=== PATIENT | female | born 1985 | race Caucasian/White ===

== ENCOUNTER → 2020-11-03 15:30 | Outpatient (CLI) | payer SELFPAY ==
[2020-11-03 17:29] LABS: HCG,Quantitative 9975 mIU/ml (0-5.42)
== END ==
PROVIDERS: Visit Provider Nurse Practitioner Obstetrics & Gynecology
DX: Z34.90 Encounter for supervision of normal pregnancy, unspecified, unspecified trimester (principal)
CPT/HCPCS: 36415; 84702

== ENCOUNTER → 2020-11-12 11:54 | Outpatient (CLI) | payer BC, SELFPAY ==
--- NOTE | 2020-11-12 12:00 | US_ITS ---
PROCEDURE: US OB <= 14 WEEKS FETUS CLINICAL INDICATION: for dates COMPARISON: No exams were available for comparison FINDINGS: An intrauterine gestational sac is present with a pole with a crown-rump length of 0.71cm correlating to gestational age of 6weeks 5days. heart tones are present with an FHR of 132bpm. Yolk sac is noted. The uterus is retroverted. There is a 5 cm left ovarian cyst and a smaller 1.4 cm left ovarian cyst. IMPRESSION: Live IUP at 6 weeks 5 days. Estimated due date by Ultrasound is 07/03/2021 Dictated by: Jimi De Luna MD 11/12/2020 18:11 Jimi De Luna MD in [place] 11/12/2020 18:11
[2020-11-12 16:04] LABS: Basophils # 0.1 K/mm3 (0-0.2); Basophils % 0.5 % (0.1-2.0); Eosinophils # 0.1 K/mm3 (0.0-0.4); Eosinophils % 0.7 % (0.1-12.0); Hematocrit 46.1 % (37.0-47.0); Hemoglobin 14.9 g/dL (12.2-16.2); Lymphocytes # 2.3 K/mm3 (0.7-4.5); Lymphocytes % 24.4 % (10-50); Mean Corpuscular HGB Conc 32.3 g/dL (31.8-35.4); Mean Corpuscular Hemoglobin 30.9 pg (27.0-31.2); Mean Corpuscular Volume 95.6 fl (81-99); Monocytes # 0.5 K/mm3 (0.1-1.0); Monocytes % 4.9 % (1.7-9.3); Neutrophils # 6.4 K/mm3 (1.8-7.8); Neutrophils % 69.5 % (37.0-80.0); Platelet Count 280 K/mm3 (142-424); Red Blood Count 4.82 M/mm3 (4.20-5.40); Red Cell Distribution Width 12.4 % (11.5-17.5); White Blood Count 9.2 K/mm3 (4.8-10.8)
[2020-11-14 08:23] LABS: HIV Screen 4th Generation wRfx Non Reactive (Non Reactive)
[2020-11-14 13:10] LABS: Hepatitis B Surface Antigen Negative (Negative); Hepatitis C Antibody <0.1 s/co ratio (0.0-0.9); Rapid Plasma Reagin Ab Titer Non Reactive (NonRea<1:1); Rubella Antibodies, IgG 1.46 index (Immune >0.99)
== END ==
PROVIDERS: Visit Provider Nurse Practitioner Obstetrics & Gynecology
DX: Z34.90 Encounter for supervision of normal pregnancy, unspecified, unspecified trimester (principal); Z3A.01 Less than 8 weeks gestation of pregnancy
CPT/HCPCS: 36415; 76801; 85025; 86592; 86703; 86762; 86850; 87340; 87380; G0432

== ENCOUNTER → 2021-01-02 09:49 | Outpatient (CLI) | payer BC, SELFPAY | PROVIDERS: Visit Provider Nurse Practitioner Obstetrics & Gynecology | DX: Z36.0 Encounter for antenatal screening for chromosomal anomalies (principal) | CPT/HCPCS: 36415 ==

== ENCOUNTER → 2021-01-15 10:35 | Outpatient (CLI) | payer BC, SELFPAY | PROVIDERS: PCP Nurse Practitioner Obstetrics & Gynecology; Visit Provider Internal Medicine Cardiovascular Disease | DX: R06.00 Dyspnea, unspecified (principal); R07.89 Other chest pain; R00.2 Palpitations; R01.1 Cardiac murmur, unspecified; R60.9 Edema, unspecified; R94.31 Abnormal electrocardiogram [ECG] [EKG]; F17.200 Nicotine dependence, unspecified, uncomplicated; Z3A.15 15 weeks gestation of pregnancy; Z82.49 Family history of ischemic heart disease and other diseases of the circulatory system | CPT/HCPCS: 93270 ==

== ENCOUNTER → 2021-01-27 13:02 | Outpatient (CLI) | payer BC, SELFPAY ==
--- NOTE | 2021-01-27 13:02 | CA_ITS ---
APPROVED REPORT EXAM: Comprehensive 2D, Doppler, and color-flow Echocardiogram Air Brush Decorator: TADEO Rader, RVS Ht: 5 ft 8 in Wt: 145lbs BSA: 1.78 HR: 68 bpm BP: 109/78 mmHg Indications: , Palpitations, abn EKG, murmur 2D Dimensions IVSd 0.87 cm LVEF (Visual) 53.00 % PWd 0.92 cm LA Volume 48.70 mL LVDd 4.63 cm LA Volume Index 27.40 mL/m2 (M/F) 16-34 LVDs 3.37 cm Aortic Root 2.54 cm Left Atrium 3.62 cm LVOT 1.66 cm (M/F) 1.5-2.5 M-Mode Dimensions LA Diam 3.48 cm (1.9-4.0) Ao Diam 2.64 cm (2.0-3.7) EPSs 0.44 cm TAPSE 2.48 (<1.7) LV Diastology E Decel Time 247.00 (160-240 msec) E/A Ratio 2.55 MED E' 11.80 (< 7 cm/sec) MED A' 6.80 cm/s E'/MED E' Ratio 12.42 (>14) LAT E' 15.60 (<10 cm/sec) LAT A' 8.40 cm/s E/LAT E' Ratio 9.40 (>14) Aortic Valve LVOT Max 149.00 (70-110 cm/s) LVOT VTI 30.28 cm Mitral Valve MV A Velocity 57.00 (40-130 cm/s) E/A Ratio 2.55 MV Decel. Time 247.00 (160-240 ms) Pulmonary Valve PV Peak Velocity 112.00 (50-150 cm/s) Tricuspid Valve TR P. Velocity 242.00 cm/s RAP Estimate 10.00 mmHg RVSP 33.40 mmHg Left Ventricle Left atrium is upper limit of normal size, left ventricle is normal size, there is no concentric left ventricular hypertrophy, visually estimated ejection fraction 55% with no regional wall motion abnormality, diastolic parameters are within normal range. Right Ventricle Right atrium and right ventricle are normal size and contractility. Aortic Valve Aortic valve is normal. There is no aortic stenosis or aortic insufficiency. Mitral Valve Mitral valve grossly normal, there is trace mitral regurgitation. Tricuspid Valve Tricuspid grossly normal, there is trace tricuspid regurgitation, tricuspid regurgitation jet velocity is inadequate for calculation of the right ventricular systolic pressure. Pulmonic Valve Pulmonic valve is poorly visualized. Great Vessels Aortic root is normal size. Pericardium No significant pericardial effusion noted. Conclusion 1. Normal left ventricular size, preserved left ventricular systolic function, visually estimated ejection fraction 55% with no regional wall motion abnormality, diastolic parameters are within normal range. 2. Trace mitral and tricuspid regurgitation of no hemodynamic significance. 3. No significant pericardial effusion noted. Electronically signed by : Chaim Garcia, 01/28/2021 15:21:49
--- NOTE | 2021-01-27 13:02 | CA_ITS ---
APPROVED REPORT Medicine Man: JOSELUIS Laterality: Bilateral Study Quality: Good Indications: bilateral carotid bruits, , palpitations, ABN EKG Doppler Spectral Velocity Analysis ECA (R) 150.20/14.40 cm/s ECA (L) 94.40/8.70 cm/s dICA (R) 74.80/25.40 cm/s dICA (L) 124.20/31.80 cm/s Yisel (R) 87.60/29.90 cm/s Yisel (L) 118.50/27.00 cm/s pICA (R) 143.50/32.70 cm/s pICA (L) 150.20/28.90 cm/s dCCA (R) 125.00/27.70 cm/s dCCA (L) 142.50/33.70 cm/s pCCA (R) 119.70/19.50 cm/s pCCA (L) 149.30/29.90 cm/s Vert (R) 65.80/12.00 cm/s Vert (L) 70.30/18.30 cm/s ICA/CCA 1.10 ICA/CCA 1.05 Findings Duplex evaluation demonstrates stenosis of the right proximal internal carotid artery <20% with PSV <140 cm/sec, EDV <100 cm/sec, and IC/CC Ratio <4.0.Duplex evaluation demonstrates stenosis of the left proximal internal carotid artery <20% with PSV <140 cm/sec, EDV <100 cm/sec, and IC/CC Ratio <4.0. Duplex evaluation demonstrates antegrade flow of the bilateral Vertebral Arteries. No focal stenosis nor plaque formations present, Tortuous right distal ICA. Conclusion Duplex evaluation demonstrates stenosis of the right proximal internal carotid artery <20%. Duplex evalluation demonstrates stenosis of the left proximal internal carotid artery <20% . Duplex evaluation demonstrates antegrade flow of the bilateral Vertebral Arteries. Electronically signed by : Jimi De Luna MD 01/27/2021 16:16:10
== END ==
LOC: RT 13:02
PROVIDERS: Visit Provider Internal Medicine Cardiovascular Disease
DX: R00.2 Palpitations (principal); R06.00 Dyspnea, unspecified; R07.89 Other chest pain; R01.1 Cardiac murmur, unspecified; R09.89 Other specified symptoms and signs involving the circulatory and respiratory systems; R94.31 Abnormal electrocardiogram [ECG] [EKG]; F17.200 Nicotine dependence, unspecified, uncomplicated; Z3A.15 15 weeks gestation of pregnancy; Z82.49 Family history of ischemic heart disease and other diseases of the circulatory system
CPT/HCPCS: 93306; 93880

== ENCOUNTER → 2021-02-17 13:12 | Outpatient (CLI) | payer BC, SELFPAY ==
--- NOTE | 2021-02-17 13:14 | US_ITS ---
PROCEDURE: US OB /MATERNAL DETAIL CLINICAL INDICATION: 20 week gestation Anatomy exam COMPARISON: US US OB <= 14 WEEKS FETUS from 11/12/2020 FINDINGS: Single live fetus is present in cephalic presentation. Cervix is closed measuring 3 cm. Placenta is anterior and grade 1 Complete survey performed and was unremarkable on the submitted images as in PACS. No discrete anomalies identified on survey imaging by technologist. Active fetus. Three-vessel cord with satisfactory umbilical cord insertion. 4- chamber heart noted. Nonspecific echogenic cardiac focus noted. Survey of brain & ventricles Unremarkable. Face and neck survey unremarkable. Diaphragm and chest views unremarkable. Abdomen: Both kidneys noted and unremarkable. Stomach noted and satisfactory. Spine: Survey of the spine satisfactory with no anomalies identified nor imaged. Both arms and legs noted. Amniotic Fluid: Adequate. Maternal adnexa: No significant findings. Measurements: Average ultrasound age 20weeks 4days. Gestational Age 20weeks 4days Estimated due date by ultrasound age 1007/03/2021. Estimated weight 358g BPD = 20weeks 5days OFD = 21weeks 3days HC = 20weeks 3days AC = 20weeks 5days FL = 20weeks 3days Growth Percentile= 41Percent% Heart Rate = 156bpm Cerebellum = 20weeks 5days Humerus = 22weeks HC/AC is 1.16 CI is 0.75 FL/BPD is 0.68 FL/AC is 0.21 IMPRESSION: Live IUP in cephalic presentation with an average ultrasound age of 20 weeks and 4 days. All parameters correlate. There is a nonspecific echogenic cardiac focus which is usually an incidental finding. Please correlate with maternal risk factors. Otherwise unremarkable. Dictated by: Jimi De Luna MD 02/18/2021 07:59 Jimi De Luna MD in [facility] 02/18/2021 07:59
== END ==
PROVIDERS: Visit Provider Nurse Practitioner Obstetrics & Gynecology
DX: Z34.90 Encounter for supervision of normal pregnancy, unspecified, unspecified trimester (principal); Z3A.20 20 weeks gestation of pregnancy
CPT/HCPCS: 76811

== ENCOUNTER → 2021-05-31 10:07 | Outpatient (CLI) | payer BC, SELFPAY ==
--- NOTE | 2021-05-31 10:10 | US_ITS ---
PROCEDURE: US OB FOLLOW UP CLINICAL INDICATION: Small for gestational age FINDINGS: There is a single live fetus present which is in cephalic presentation. heart and body motion noted. The placenta is anterior in implantation and grade 1. No obvious previa or abruption. The cervix is closed and measures 3 cm The following parameters are obtained: Average ultrasound age is Average 34weeks 6days Estimated due date by ultrasound is 07/06/2021. Estimated weight is 2,492g. This is 31 percentile BPD: 35weeks 1day OFD: 35 weeks 0 days HC: 34weeks 5days AC: 34weeks 4days FL: 35weeks heart rate: 146bpm bpm. HC/AC: 1.01 Cephalic index: 0.8 FL/BPD: 0.78 FL/AC: 0.22 Amniotic fluid index: 11.91cm The femur length is 35weeks SD ratio and resistive index of the umbilical artery are within normal limits at 2.3 and 0.57 respectively. Biophysical profile is 8 of 8 IMPRESSION: Single live fetus in cephalic presentation with an average ultrasound age of 34 weeks 6 days. Estimated weight 2492 g which is 31 percentile. RENAE normal at 12 cm SD ratio unremarkable. Biophysical profile 8 of 8 Dictated by: Jimi De Luna MD 06/07/2021 10:23 Jimi De Luna MD in [facility] 06/07/2021 10:23
== END ==
PROVIDERS: Visit Provider Nurse Practitioner Obstetrics & Gynecology
DX: O36.5990 Maternal care for other known or suspected poor fetal growth, unspecified trimester, not applicable or unspecified (principal)
CPT/HCPCS: 76811; 76819; 76820

== ENCOUNTER → 2021-06-01 17:09 | Outpatient (CLI) | payer BC, SELFPAY | PROVIDERS: Visit Provider Nurse Practitioner Obstetrics & Gynecology | DX: Z34.90 Encounter for supervision of normal pregnancy, unspecified, unspecified trimester (principal) | CPT/HCPCS: 86403 ==

== ENCOUNTER 2021-06-29 03:01 | Inpatient (IN) | payer BC, SELFPAY ==
[2021-06-29] VITALS (11 sets, daily range): BP systolic 93–136; BP diastolic 50–84; PULSE 63–84; RESP 12–18; TEMP 36.4–36.9; O2SAT 94–100; BMI 24.9
[2021-06-29 03:15] LABS: Coronavirus 19, PCR Not Detected (NotDetected); Influenza A, PCR Not Detected (NotDetected); Influenza B, PCR Not Detected (NotDetected)
[2021-06-29 03:18] LABS: Basophils # 0.1 K/mm3 (0-0.2); Basophils % 0.4 % (0.1-2.0); Eosinophils # 0.1 K/mm3 (0.0-0.4); Eosinophils % 1.2 % (0.1-12.0); Hematocrit 43.8 % (37.0-47.0); Hemoglobin 14.5 g/dL (12.2-16.2); Lymphocytes % 24.6 % (10-50); Mean Corpuscular HGB Conc 33.1 g/dL (31.8-35.4); Mean Corpuscular Hemoglobin 31.8 pg (27.0-31.2); Mean Corpuscular Volume 96.2 fl (81-99); Mean Platelet Volume 7.7 fl (7.4-10.4); Monocytes # 0.6 K/mm3 (0.1-1.0); Monocytes % 5.2 % (1.7-9.3); Neutrophils # 8.4 K/mm3 (1.8-7.8); Neutrophils % 68.6 % (37.0-80.0); Platelet Count 251 K/mm3 (142-424); Red Blood Count 4.55 M/mm3 (4.20-5.40); Red Cell Distribution Width 12.5 % (11.5-17.5); White Blood Count 12.3 K/mm3 (4.8-10.8)
--- NOTE | 2021-06-29 05:56 | HMH.DN ---
- Delivery Note Delivery Date:: 06/29/21 Delivery Time:: 05:43 Anesthesia Type: None Was labor medically induced?: No Induction method: none Gestational age (weeks): 39 delivered prior to 39 weeks?: No Justification for early elective delivery:: Active Labor Infant Gender: Female at 1 minute: 9 at 5 minutes: 9 Delivery Procedure:: She is a 35-year-old 4 para 3 at 39 weeks gestational age. She came in in active labor and was found be 7 cm dilated. She progressed to full dilation and delivered spontaneously a liveborn female child at 5:48 AM on the morning of June 29, 2021. On deliver the head the anterior shoulder then easily delivered followed by the rest infant's body atraumatically. We allowed the cord to continue to pulsate and then the cord was doubly clamped and cut. The was then placed on the mother's abdomen for further care. The placenta did not come out on its own so she has been taking to the operating room for a manual removal of her placenta. Placental Delivery Description: Spontaneous
--- NOTE | 2021-06-29 05:59 | HMH.OBAPHP ---
OB - H&P: HPI Antepartum - History of Present Illness Chief complaint: Contractions History of present illness: She is a 35-year-old 4 para 3 at 39+ weeks gestational age. She came in in active labor and on arrival was found to be 7 cm dilated. - History of Present Criteria for establishing EDC:: LMP confirmed by 1st trimester US care: good care Ultrasounds: normal 1st trimester US, normal mid trimester US Obstetrical complications: none Medical complications: none - Labs Blood type: O (+) positive Rubella: immune RPR/VDRL: nonreactive GBS status: negative HBsAG: negative [facility] History I have reviewed the patient's past medical history: Yes Medical History: Reports:: Heart Murmur, Palpitations *Have you ever received a pneumonia vaccine?: No *Have you received a flu vaccine this season?: No Laterality Cases: Bilateral: Tonsillectomy Other Surgeries: Yes: Diagnostic Lap. No: Amputation: No Fractures: No - *Social History Smoking Status: Current every day smoker Tobacco Type: cigarettes # Packs/Day (cigarettes): 1 Alcohol Intake: never Alcohol Intake Frequency:: other Substance Use Type: denies use *Occupational Status:: employed *Travel in the last 8 weeks: None Family Hx:: Other Para: 3 Review of Systems - Review of Systems Review of systems:: pertinent systems reviewed and negative unless documented below Meds Home Medications Medication Instructions Recorded Confirmed Type vits 75-iron 28 mg-folic 1 tablet PO DAILY each 02/12/21 06/29/21 History acid 800 mcg-omega-3 oral combo pack Ferrous Sulfate 325 mg PO DAILY 06/29/21 06/29/21 History Allergies Allergy/AdvReac Type Severity Reaction Status Date / Time promethazine [From PHENERGAN] Allergy Mild PASSES ME Verified 06/22/21 08:37 OUT FOR DAYS meperidine [From DEMEROL] Allergy Unknown Verified 06/22/21 08:37 latex Allergy Verified 06/29/21 03:46 acetaminophen [From Percocet] AdvReac Mild Headache Verified 06/22/21 08:37 oxycodone [From Percocet] AdvReac Mild Headache Verified 06/22/21 08:37 OB - H&P: Exam - Physical Exam Vital signs: Temp Pulse Resp BP Pulse Ox 98.5 F 74 18 136/72 99 06/29/21 03:14 06/29/21 03:14 06/29/21 03:14 06/29/21 03:14 06/29/21 03:14 - Constitutional no acute distress - Routine HEENT Exam Head: Present: normocephalic Eye: Present: EOMI, PERRL ENT: Present: mucous membranes moist - Routine Neck Exam Present: supple, full ROM - Routine Respiratory Exam Absent: accessory muscle use (good air entry bilaterally), respiratory distress, wheezes, crackles - Routine Cardiovascular Exam Present: RRR. Absent: murmur - Routine Abdominal Exam Present: soft, normoactive bowel sounds. Absent: tenderness, distended, guarding - Routine Rectal Exam Patient deferred: visual exam, digital exam - Routine Exam Patient deferred: external exam, groin exam, perineal exam - Routine Extremities Exam Present: full ROM. Absent: cyanosis, edema - Routine Skin Exam Present: intact. Absent: cyanosis - Routine Neurological Exam Present: alert, oriented X3 - Routine Psychiatric Exam Present: normal affect OB - Results - Labs Labs: Short CBC 06/29/21 Range/Units 02:55 WBC 12.3 H (4.8-10.8) K/mm3 Hgb 14.5 (12.2-16.2) g/dL Hct 43.8 (37.0-47.0) % Plt Count 251 (142-424) K/mm3 OB - A/P Antepartum (1) Normal delivery at term Status: Acute - Additional Plan Planning to breastfeed?: Yes Plan: expectant management Additional Information:: She is in active labor. Expect vaginal delivery.
--- NOTE | 2021-06-29 07:07 | P.OP_ITS ---
Date of procedure: 06/29/21 Pre-op Diagnosis:: Retained placenta Post-op Diagnosis:: Retained placenta Procedure performed:: Manual removal of retained placenta Surgeon:: Federico Mark MD HANDLE LATHE OPERATOR:: Jluis Ferrari Anesthesia: LMA Estimated blood loss (mL): 1,000 Clinical Note:: She is a 35-year-old 4 para 4 who was 30 minutes post vaginal delivery a nd I was not able to deliver the placenta. As result of that we have taken her to the operating room for manual removal. The risks of surgery discussed with patient prior to surgery. Operative findings:: She had a retained placenta in the right side of the fundus. I was able to remove this manually. The uterus was still somewhat boggy after the procedure and was bleeding so I elected to place a DEIDRE RI balloon within the uterine cavity. Operative note:: She was taken the operating room where LMA anesthesia was found be adequate. She was prepped regular sterile fashion in the lithotomy position. I grasped the placenta with my fingers and was able to remove it in its entirety. She was still oozing significantly so I elected to place a BA KR I balloon within the uterine cavity. We injected approximately 210 cc of saline. She tolerated procedure well and was taken to the recovery next condition. All sponge, instrument and needle counts were correct. The estimated blood loss was approximately 1000 cc. Condition: stable Disposition: PACU Specimens:: Placenta Complications:: None
--- NOTE | 2021-06-29 07:23 | HMH.ANESCL ---
[facility] Anesthesia Checklist - Structural Data Admitted From: Inpatient Planned Operative Procedure/s: d/e Consent for Planned Operative Procedure(s) Verified: Yes - Airway Assessment C-Spine Mobility Assessed: Yes TMJ Mobility Assessed: Yes Dentition: Good Dentition - Neurological Assessment Level of Consciousness: Awake, Alert, Appropriate - Anesthesia Plan Anesthesia Risk discussed: Yes Anesthesia Plan: Verified ASA Class: II Anesthesia Type: General [facility] History I have reviewed the patient's past medical history: Yes Medical History: Reports:: Heart Murmur, Palpitations *Have you ever received a pneumonia vaccine?: No *Have you received a flu vaccine this season?: No Anesthesia experience/problems:: none Laterality Cases: Bilateral: Tonsillectomy Other Surgeries: Yes: Diagnostic Lap. No: Amputation: No Fractures: No - *Social History Smoking Status: Current every day smoker Tobacco Type: cigarettes # Packs/Day (cigarettes): 1 Alcohol Intake: never Alcohol Intake Frequency:: other Substance Use Type: denies use *Occupational Status:: employed *Travel in the last 8 weeks: None Family Hx:: Other Para: 3
--- NOTE | 2021-06-29 07:24 | HMH.ANESI ---
[facility] Anesthesia Record Part I Intake, IV Amount: 500 Estimated blood loss (mL): 1,000 Urine output (mL): 250 Blood Pressure: 95/62 SaO2: 95 Pulse Rate: 71 Respiratory Rate: 12 Temperature: 98 F Patient is:: Awake, Stable Stable to PACU at:: 07:15
--- NOTE | 2021-06-29 07:32 | HMH.PHAINT ---
MEDICATION RECONCILIATION COMPLETE USING PREVIOUS OFFICE VISIT AND SURESCRIPTS
--- NOTE | 2021-06-29 08:27 | P.PN_ITS ---
[facility] Anesthesia Record Part II Discharge Time: 07:55 Destination: Obstetric PACU nurse assessment reviewed?: Yes Patient Condition:: Good Anesthesia Complications:: None Swallowing reflex intact?: Yes Cyanosis?: No Blood Pressure: 103/67 Pulse Rate: 63 Temperature: 97.7 F Mental Status: Alert & Oriented Pain level:: 6 Nausea and/or vomitting:: None Intake, IV Amount: 0
[2021-06-29 16:02] LABS: Hematocrit 33.4 % (37.0-47.0)
[2021-06-29 17:42] LABS: Hemoglobin 10.8 g/dL (12.2-16.2)
[2021-06-29 20:49] LABS: POC Glucose,Bedside 70 (70-110)
[2021-06-30 00:08] VITALS: BP 94/50; PULSE 67; RESP 17; TEMP 36.7; O2SAT 97
[2021-06-30 00:22] LABS: POC Glucose,Bedside 71 (70-110)
[2021-06-30 02:54] LABS: POC Glucose,Bedside 75 (70-110)
[2021-06-30 04:23] VITALS: BP 94/50; PULSE 65; RESP 18; TEMP 36.9; O2SAT 97
[2021-06-30 07:23] LABS: Hematocrit 29.7 % (37.0-47.0); Hemoglobin 9.5 g/dL (12.2-16.2)
[2021-06-30 08:40] VITALS: BP 98/52; PULSE 86; RESP 17; TEMP 36.8; O2SAT 98
--- NOTE | 2021-06-30 09:42 | HMH.OBDCSM ---
General - General Admission date:: 06/29/21 Discharge date: 06/30/21 HPI - History of Present Illness History of present illness: She arrived in active labor and was found to be 7 cm dilated. She was 39 weeks gestational age. Hospital Course Hospital Course: She progressed to full dilation and delivered spontaneously a liveborn female child at 5:43 AM on the morning of June 29, 2021. The baby weighed 6 pounds 2 ounces and was 19 inches long. She had Apgars of 9 at 1 minute and 9 at 5 minutes. She is breast-feeding. She had a retained placenta and I had to take her to the operating room for manual removal of the placenta. She subsequently had a DEIDRE RI balloon within the uterine cavity and this was removed on the morning of discharge. She has done well. Her hemoglobin is stable at 10.8. She has O+ blood, she is rubella immune and was group B streptococcus negative. Her repairer screen crusher Dr. Covington. She is discharged home to follow-up with me in approximately 2 weeks time. She will continue with her vitamins and iron. She was given the usual instructions with respect to limiting her activity, driving and sexual activity. She will discuss with me about control at her first visit. Her condition on discharge is stable and improved. Rhogam Administration: Not Indicated Objective Vital signs: Temp Pulse Resp BP Pulse Ox 98.3 F 86 17 98/52 L 98 06/30/21 08:40 06/30/21 08:40 06/30/21 08:40 06/30/21 08:40 06/30/21 08:40 no acute distress - *Routine HEENT Exam Head: Present: normocephalic Eye: Present: EOMI, PERRL ENT: Present: mucous membranes moist Results Labs on day of discharge: Labs from last 24 hours 06/30/21 06/30/21 06/30/21 06:40 02:45 00:14 Hgb 9.5 L D Hct 29.7 L POC Glucose 75 71 Blood Type Blood Type Confirm Antibody Screen Crossmatch (AHG) 06/29/21 06/29/21 06/29/21 20:41 15:57 11:04 Hgb 10.8 L D Hct 33.4 L POC Glucose 70 Blood Type Blood Type Confirm O Positive Antibody Screen Crossmatch (AHG) 06/29/21 02:55 Hgb Hct POC Glucose Blood Type O Positive Blood Type Confirm Antibody Screen Negative Crossmatch (AHG) See Detail DS: Diagnosis - Discharge Diagnosis (1) Normal delivery at term Status: Acute (2) Retained placenta after delivery without hemorrhage but with other complication Status: Acute Discharge Plan - Patient Discharge Instructions ACTIVITY: No heavy lifting DIET: continue same diet Additional Instructions: No heavy lifting/strenuous activity Nothing in the vagina for 6 weeks Follow up with MD as scheduled Patient Instructions: Depression, Hemorrhage, DI for Labor and Delivery, Vaginal , DI for Pre-eclampsia, [facility] Post Discharge Instructions, Preventing the Spread of Coronavirus Discharge Instructions - Follow up Plan Follow up with: Federico Mark MD [Staff Physician] - Disposition: Home, Self-Care Condition at discharge:: Stable Home Medications: Home Medications Medication Instructions Recorded Confirmed Type vits 75-iron 28 mg-folic 1 tablet PO DAILY each 02/12/21 06/29/21 History acid 800 mcg-omega-3 oral combo pack Ferrous Sulfate 325 mg PO DAILY 06/29/21 06/29/21 History Prescriptions/Medication Reconciliation: Continued vits 75-iron 28 mg-folic acid 800 mcg-omega-3 oral combo pack 1 tablet PO DAILY each Ferrous Sulfate 325 mg PO DAILY - Problem Reconciliation Problems Reviewed?: Yes
== END 2021-06-30 15:13 | disposition home or self-care (01) | DRG 807 ==
LOC: OBOUT 03:02 → OB 03:02
PROVIDERS: Admitting Provider Nurse Practitioner Obstetrics & Gynecology; Visit Provider Nurse Practitioner Obstetrics & Gynecology
DX: O73.0 Retained placenta without hemorrhage (principal); Z37.0 Single live birth; Z3A.39 39 weeks gestation of pregnancy
CPT/HCPCS: 59409; 59414; 36415; 59025; 82962; 85014; 85018; 85025; 86850; C9803; J2405; U0003; U0005

== ENCOUNTER → 2022-04-11 08:52 | Outpatient (CLI) | payer BC, SELFPAY ==
[2022-04-11 11:32] LABS: HCG,Quantitative 21872 mIU/ml (0-5.42)
== END ==
PROVIDERS: Visit Provider Nurse Practitioner Obstetrics & Gynecology
DX: N92.6 Irregular menstruation, unspecified (principal)
CPT/HCPCS: 36415; 84702

== ENCOUNTER → 2022-05-11 12:39 | Outpatient (CLI) | payer BC, SELFPAY ==
--- NOTE | 2022-05-11 12:39 | US_ITS ---
FINAL REPORT CLINICAL HISTORY: for dates FINDINGS: Sonographic images of the pelvis were obtained. A single intrauterine is noted. A yolk sac is present and measures 0.54 cm. [place] to rump length measures 20.4 mm which corresponds to 8 weeks 5 days gestation. Heartbeat is not identified. The right ovary measures 3 cm in length with a 1.7 cm cyst. The left ovary measures 3.4 cm in length with a 1.6 cm cyst. IMPRESSION: Single intrauterine gestation no heartbeat identified consistent with a failed . Reviewed, Interpreted and Dictated by Rubin Decker III, MD Transcribed by Kylah Mendoza Authenticated and [facility]
== END ==
PROVIDERS: Visit Provider Nurse Practitioner Obstetrics & Gynecology
DX: Z34.90 Encounter for supervision of normal pregnancy, unspecified, unspecified trimester (principal)
CPT/HCPCS: 76801

== ENCOUNTER → 2022-05-11 14:32 | Outpatient (CLI) | payer BC, SELFPAY ==
[2022-05-11 17:42] LABS: Alanine Aminotransferase 29 U/L (12-78); Albumin Level 3.7 g/dl (3.5-5.0); Albumin/Globulin Ratio 1.4 (1.1-1.8); Alkaline Phosphatase 45 U/L (38-126); Anion Gap 9.1 mEq/L (5-15); Aspartate Amino Transferase 30 U/L (14-36); Blood Urea Nitrogen 9 mg/dl (7-17); Calcium 9.1 mg/dl (8.4-10.2); Carbon Dioxide 26 mmol/L (22.0-30.0); Chloride 105 mmol/L (98-107); Estimated Glomerular Filt Rate 139 ml/min (>60); GFR (African American) 168 ML/MIN (>60); Globulin 2.7 g/dL (1.3-3.2); Glucose 92 mg/dl (74-100); Potassium 4.1 mmoL/L (3.5-5.1); Sodium 136 mmol/L (136-145); Total Protein,Serum 6.4 g/dl (6.3-8.2)
[2022-05-11 17:47] LABS: Basophils % 0.3 % (0.1-2.0); Eosinophils # 0.1 K/mm3 (0.0-0.4); Eosinophils % 0.9 % (0.1-12.0); Hematocrit 40.2 % (37.0-47.0); Hemoglobin 12.6 g/dL (12.2-16.2); Lymphocytes # 2.2 K/mm3 (0.7-4.5); Lymphocytes % 25.2 % (10-50); Mean Corpuscular HGB Conc 31.3 g/dL (31.8-35.4); Mean Corpuscular Hemoglobin 30.4 pg (27.0-31.2); Mean Corpuscular Volume 97.2 fl (81-99); Mean Platelet Volume 9.6 fl (7.4-10.4); Monocytes # 0.4 K/mm3 (0.1-1.0); Monocytes % 4.6 % (1.7-9.3); Neutrophils # 5.9 K/mm3 (1.8-7.8); Neutrophils % 68.9 % (37.0-80.0); Platelet Count 305 K/mm3 (142-424); Red Blood Count 4.14 M/mm3 (4.20-5.40); Red Cell Distribution Width 12.9 % (11.5-17.5); White Blood Count 8.6 K/mm3 (4.8-10.8)
[2022-05-11 18:15] LABS: Bilirubin,Total < 0.1 mg/dl (0.2-1.3)
== END ==
PROVIDERS: Visit Provider Nurse Practitioner Obstetrics & Gynecology
DX: Z01.812 Encounter for preprocedural laboratory examination (principal); Z20.822 Contact with and (suspected) exposure to COVID-19; O02.1 Missed abortion; Z34.90 Encounter for supervision of normal pregnancy, unspecified, unspecified trimester; N92.0 Excessive and frequent menstruation with regular cycle
CPT/HCPCS: 36415; 80053; 85025; C9803; U0003; U0005

== ENCOUNTER 2022-05-12 09:16 | Day surgery (SDC) | payer BC, SELFPAY ==
[2022-05-12] VITALS (9 sets, daily range): BP systolic 94–114; BP diastolic 51–64; PULSE 54–74; RESP 16–21; TEMP 36.3–36.9; O2SAT 93–100
--- NOTE | 2022-05-12 10:45 | P.OP_ITS ---
Date of procedure: 05/12/22 Pre-op Diagnosis:: Missed Post-op Diagnosis:: Missed and right Bartholin gland cyst Procedure performed:: Dilation and curettage with [place] suction Surgeon:: Federico Mark MD COMMUNITY SUPPORT PROFESSIONAL:: Efra Renyolds Anesthesia: LMA Estimated blood loss (mL): 300 Clinical Note:: She is a 36-year-old lady who was about 9 weeks gestational age. She had an ultrasound in radiology that showed no heart rate activity. I repeated the ultrasound here in the office and confirmed that with the patient. There was no heart rate and no Doppler flow. As result of that she was offered dilation and evacuation with Bjorn suction. Operative findings:: She had an anteverted somewhat bulky uterus consistent with her dates. She also had a 3 cm right Bartholin's gland cyst. Operative note:: She was taken the operating room where LMA anesthesia was found to be adequate. She was prepped and draped in the normal sterile fashion in the lithotomy position. A weighted speculum was placed in the vagina and the anterior lip of the cervix was grasped with a tenaculum. Tamayo dilators were used to dilate the cervix to approximately 9 mm. Then using a 9 mm curved [place] suction curette I evacuated the uterine contents. This was followed by a gentle curettage. She tolerated procedure well and was taken recovery room in excellent condition. All sponge, instrument and needle counts were correct. The estimated blood loss was approximately 300 cc. Condition: stable Disposition: PACU Specimens:: Products of conception Complications:: None
--- NOTE | 2022-05-12 10:49 | EXP.ANES.CKL ---
[facility] Medical History (Updated 05/12/22 @ 09:46 by Corinne Aleman RN) Abnormal EKG Chest pain Chest pain Dyspnea Dyspnea Family history of heart disease Heart disease Heart murmur Palpitations Retained placenta Tobacco dependence syndrome Tonsillectomy planned Surgical History H/O exploratory laparotomy H/O removal of cyst Family History Other Heart attack Substance abuse Social History Smoking Status: Never smoker alcohol intake: current substance use type: denies use current occupational status: employed Travel in the last 8 weeks: None [facility] Anesthesia Checklist Patient Identification Patient Identification: Arm Band Structural Data Admitted From: Home Planned Operative Procedure/s: D&C with Rocío Suction Consent for Planned Operative Procedure(s) Verified: Yes Verified Documents: Surgical Consent and History and Physical NPO Status Verified Time NPO: 00:00 Additional verifications Anesthesia Reactions: Yes (N/V) Hx Blood Transfusions: No Blood Transfusion Reaction: No Airway Assessment C-Spine Mobility Assessed: Yes (mp2) TMJ Mobility Assessed: Yes Dentition: Good Dentition Neurological Assessment Level of Consciousness: Awake and Alert Anesthesia Plan Anesthesia Risk discussed: Yes Anesthesia Plan: Verified ASA Class: I Anesthesia Type: General
--- NOTE | 2022-05-12 10:50 | EXP.ANES.I ---
[facility] Anesthesia Record Part I Anesthesia Record I Intake, IV Amount: 800 Estimated blood loss (mL): 300 Urine output (mL): 0 Blood Pressure: 101/51 SaO2: 93 Pulse Rate: 59 Respiratory Rate: 16 Temperature: 97.4 F Patient is:: Drowsy and Stable Stable to PACU at:: 10:45
--- NOTE | 2022-05-12 11:28 | SUR.PHASEI ---
LATE ENTRY [id number] called and gave detailed report to Kavitha Bates RN [id number] transported via stretcher to post op. vital signs stable. denies pain. and child at bedside. left in stable condition with Kavitha Bates RN at bedside.
== END 2022-05-12 10:48 | disposition home or self-care (01) ==
PROVIDERS: PCP Nurse Practitioner Obstetrics & Gynecology; Visit Provider Nurse Practitioner Obstetrics & Gynecology
PROC: (CPT 59820; principal; 2022-05-12 10:30)
DX: O02.1 Missed abortion (principal); Z3A.09 9 weeks gestation of pregnancy
CPT/HCPCS: 59820; 96374; J2405

== ENCOUNTER → 2022-12-09 16:08 | Outpatient (CLI) | payer BC, SELFPAY ==
[2022-12-11 07:53] LABS: Progesterone 25.6 ng/mL (.)
== END ==
LOC: LAB 16:09
PROVIDERS: Visit Provider Nurse Practitioner Obstetrics & Gynecology
DX: N92.6 Irregular menstruation, unspecified (principal); Z32.00 Encounter for pregnancy test, result unknown
CPT/HCPCS: 36415; 84144; 84702

== ENCOUNTER → 2022-12-13 12:32 | Outpatient (CLI) | payer BC, SELFPAY ==
--- NOTE | 2022-12-13 12:33 | US_ITS ---
FINAL REPORT CLINICAL HISTORY: for dates FINDINGS: Sonographic images of the pelvis were obtained. A single, living intrauterine is noted. A yolk sac is present and measures 0.6 cm. [place] to rump length measures 3.5 cm which corresponds to 10 weeks 3 days gestation. Heartbeat is identified and measures 167 beats per minute. There are small ovarian cysts which are likely physiologic. The ovaries are otherwise unremarkable. IMPRESSION: Single, living, intrauterine gestation with 10 weeks 3 days gestational age. Reviewed, Interpreted and Dictated by Axel Yañez MD Transcribed by Osvaldo Fraser Authenticated and [facility]
== END ==
LOC: RAD 12:33
PROVIDERS: PCP Nurse Practitioner Obstetrics & Gynecology; Visit Provider Nurse Practitioner Obstetrics & Gynecology
DX: Z34.90 Encounter for supervision of normal pregnancy, unspecified, unspecified trimester (principal)
CPT/HCPCS: 76801

== ENCOUNTER → 2022-12-13 17:18 | Outpatient (CLI) | payer BC, SELFPAY | LOC: LAB.DROPOF 17:18 | PROVIDERS: Visit Provider Nurse Practitioner Obstetrics & Gynecology | DX: Z34.90 Encounter for supervision of normal pregnancy, unspecified, unspecified trimester (principal) | CPT/HCPCS: 87086; 87088; 87186 ==

== ENCOUNTER → 2023-01-10 09:52 | Outpatient (CLI) | payer BC, SELFPAY ==
[2023-01-10 10:47] LABS: Basophils % 0.4 % (0.1-2.0); Eosinophils # 0.1 K/mm3 (0.0-0.4); Eosinophils % 1.2 % (0.1-12.0); Hematocrit 39.7 % (37.0-47.0); Hemoglobin 12.7 g/dL (12.2-16.2); Lymphocytes # 1.9 K/mm3 (0.7-4.5); Lymphocytes % 25.5 % (10-50); Mean Corpuscular HGB Conc 31.9 g/dL (31.8-35.4); Mean Corpuscular Hemoglobin 29.3 pg (27.0-31.2); Mean Corpuscular Volume 91.7 fl (81-99); Mean Platelet Volume 7.4 fl (7.4-10.4); Monocytes # 0.3 K/mm3 (0.1-1.0); Monocytes % 4.3 % (1.7-9.3); Neutrophils # 5.1 K/mm3 (1.8-7.8); Neutrophils % 68.6 % (37.0-80.0); Platelet Count 280 K/mm3 (142-424); Red Blood Count 4.32 M/mm3 (4.20-5.40); Red Cell Distribution Width 12.8 % (11.5-17.5); White Blood Count 7.4 K/mm3 (4.8-10.8)
[2023-01-11 10:05] LABS: Rubella Antibodies, IgG 1.17 index (Immune >0.99)
[2023-01-11 13:51] LABS: Rapid Plasma Reagin Ab Titer Non Reactive (NonRea<1:1)
[2023-01-20 20:52] LABS: HIV Screen 4th Generation wRfx Non Reactive; Hepatitis B Surface Antigen Negative
[2023-01-20 20:53] LABS: Hepatitis C Antibody Non Reactive
== END ==
PROVIDERS: PCP Nurse Practitioner Obstetrics & Gynecology; Visit Provider Nurse Practitioner Obstetrics & Gynecology
DX: Z34.90 Encounter for supervision of normal pregnancy, unspecified, unspecified trimester (principal)
CPT/HCPCS: 36415; 85025; 86593; 86703; 86762; 86850; 87340; 87380; G0432

== ENCOUNTER → 2023-02-23 14:09 | Outpatient (CLI) | payer BC, SELFPAY ==
--- NOTE | 2023-02-23 14:17 | US_ITS ---
PROCEDURE: US OB /MATERNAL DETAIL CLINICAL INDICATION: 20 week anatomy scan COMPARISON: US US OB <= 14 WEEKS FETUS from 12/13/2022 FINDINGS: Single viable intrauterine gestation. Breech position. Placenta: Posteriorplacenta grade 1. There is average amount fluid. The cervix appears satisfactory. Closed and measuring 4.2 cm in length. Complete survey performed, submitted images as in PACS. There were 2 anomalies identified on survey imaging by technologist. Active fetus. Three-vessel cord with satisfactory umbilical cord insertion. 4- chamber heart noted. There was a cardiac echogenic foci within the heart. There is trace pericardial fluid. Survey of brain & ventricles Unremarkable. Cerebellum, choroid plexus, thalamus, cisterna magna appear normal Face and neck survey unremarkable. Upper lip and nose appear normal. Profile appears normal. Nasion is seen. Diaphragm and chest views unremarkable. Abdomen: Both kidneys noted and unremarkable. Stomach noted and satisfactory. Bladder visualized. Spine: Survey of the spine satisfactory with no anomalies identified nor imaged. Upper, thoracic, lower spine appear normal. Both arms and legs noted. Amniotic Fluid: Adequate. Measurements: Average ultrasound age 20weeks 6days. Gestational Age 20weeks 6days Estimated due date by ultrasound age 1007/07/2023. Estimated weight 368g BPD = 21weeks 2days OFD = 21weeks HC = 20weeks 3days AC = 21weeks FL = 20weeks 3days Growth Percentile= 34Percent Heart Rate = 152bpm Cerebellum = 20weeks 2days Humerus = 20weeks 5days HC/AC is 1.14 CI is 0.8 FL/BPD is 0.66 FL/AC is 0.21 IMPRESSION: 1. Fetus in the breech presentation with a posterior placenta grade 1. 2. There is an intracardiac echogenic foci. 3. There is a trace amount pericardial fluid. 4. The rest of the anatomical scan appears normal. 5. There has being good interval growth and the size and dates are concordant with her early ultrasound. 6. Suggest a maternal medicine consult for the cardiac anomalies seen. Dictated by: Federico Mark MD 02/26/2023 19:39 Federico Mark MD in [place] 02/26/2023 19:39
== END ==
LOC: RAD 14:10
PROVIDERS: Visit Provider Nurse Practitioner Obstetrics & Gynecology
DX: Z34.92 Encounter for supervision of normal pregnancy, unspecified, second trimester (principal); Z3A.20 20 weeks gestation of pregnancy
CPT/HCPCS: 76811

== ENCOUNTER → 2023-06-13 10:43 | Outpatient (CLI) | payer BC, SELFPAY ==
--- NOTE | 2023-06-13 10:45 | US_ITS ---
PROCEDURE: US OB BIOPHYSICAL PROFILE CLINICAL INDICATION: sga COMPARISON: Anatomy scan February 23, 2023. FINDINGS: Transabdominal sonographic images of the uterus were obtained. From her established due date she is 36weeks 3days. The following parameters are obtained: Viable fetus in the cephalic presentation with a fundal placenta grade 2 Average ultrasound age is 34weeks 5days. Estimated due date by ultrasound is 07/20/2023. Estimated weight is 5lb 8oz. Cervix measures 3.8 cm heart rate: 155bpm bpm. BPD: 34weeks 6days OFD: 34weeks 6days HC: 34 weeks 3 days AC: 34 weeks 6 days FL: 34 weeks 5 days HC/AC: 1.0 Cephalic index: 0.79 FL/BPD: 0.78 FL/AC: 0.22 13 percentile Amniotic fluid index: 8.22cm Qualitative AFV: 2 breathing movements: 0 Gross body movements: 2 Tone: 2 Biophysical profile score: 6 Doppler evaluation of the umbilical artery: SD ratio: 2.73 Resistive index: 0.63 No obvious anomalies evident.Kidneys, diaphragm, bladder, stomach, three-vessel cord appear normal. IMPRESSION: 1. Viable fetus in the cephalic presentation with a fundal placenta grade 2. 2. The fluid is within normal limits with an amniotic fluid index of 8.22 cm. 3. Biophysical profile is 6/8 with no breathing movement seen. There was good movement. 4. SD ratio is normal at 2.7. 5. There has been good growth. The fetus is currently 13th percentile. 6. Physician was notified of the lack of breathing movement. Dictated by: Federico Mark MD 06/14/2023 09:00 Federico Mark MD in OV 06/14/2023 09:00
== END ==
LOC: RAD 10:43
PROVIDERS: Visit Provider Nurse Practitioner Obstetrics & Gynecology
DX: O36.5990 Maternal care for other known or suspected poor fetal growth, unspecified trimester, not applicable or unspecified (principal); Z3A.36 36 weeks gestation of pregnancy
CPT/HCPCS: 76816; 76819; 76820

== ENCOUNTER → 2023-06-19 12:34 | Outpatient (CLI) | payer BC, SELFPAY | LOC: LAB 06-20 12:35 | PROVIDERS: PCP Nurse Practitioner Obstetrics & Gynecology; Visit Provider Nurse Practitioner Obstetrics & Gynecology | DX: Z34.93 Encounter for supervision of normal pregnancy, unspecified, third trimester (principal); Z3A.37 37 weeks gestation of pregnancy | CPT/HCPCS: 86403 ==

== ENCOUNTER 2023-07-12 20:29 | Inpatient (IN) | payer BC, SELFPAY ==
[2023-07-12 19:17] VITALS: BP 124/90; PULSE 84; RESP 17; TEMP 36.8; O2SAT 99; BMI 27.0
[2023-07-12 20:11] LABS: Microscopic, Urine URINE MICROSCOPIC (MICROSCOPIC)
[2023-07-12 20:20] LABS: Appearance,Urine CLEAR (Clear); Bilirubin,Urine Negative (Negative); Blood, Urine 2+ (Negative); Color,Urine YELLOW (Yellow); Glucose,Urine (UA) Negative (Negative); Ketones,Urine Negative (Negative); Leukocyte Esterase,Urine 2+ (Negative); Nitrate,Urine Negative (Negative); Protein,Urine Negative (Negative); Urobilinogen,Urine 0.2 EU/dl (0.2)
[2023-07-12 20:33] LABS: Amphetamine/Metha Screen,Urine Negative ng/ml (<1000); Barbiturates Screen,Urine Negative ng/ml (<200)
[2023-07-12 20:34] LABS: Benzodiazepines Screen,Urine Negative ng/ml (<200)
[2023-07-12 20:35] LABS: Cannabinoid Screen,Urine Negative ng/ml (<50); Cocaine Screen,Urine Negative ng/ml (<300)
[2023-07-12 20:36] LABS: Methadone Screen,Urine Negative ng/ml (<300)
[2023-07-12 20:38] LABS: Opiate Screen,Urine Negative ng/ml (<300)
[2023-07-12 20:39] LABS: Phencyclidine Screen,Urine Negative ng/ml (<25)
[2023-07-12 20:46] LABS: Bacteria,Urine 1+ /lpf; RBC,Urine Occasional #/hpf (0-3)
[2023-07-12 21:09] LABS: Basophils % 0.3 % (0.1-2.0); Eosinophils # 0.1 K/mm3 (0.0-0.4); Eosinophils % 0.7 % (0.1-12.0); Lymphocytes # 1.8 K/mm3 (0.7-4.5); Lymphocytes % 18.1 % (10-50); Mean Corpuscular HGB Conc 34.3 g/dL (31.8-35.4); Mean Corpuscular Hemoglobin 30.8 pg (27.0-31.2); Mean Corpuscular Volume 89.6 fl (81-99); Monocytes # 0.3 K/mm3 (0.1-1.0); Monocytes % 3.3 % (1.7-9.3); Neutrophils # 7.9 K/mm3 (1.8-7.8); Neutrophils % 77.6 % (37.0-80.0); Platelet Count 240 K/mm3 (142-424); Red Blood Count 4.24 M/mm3 (4.20-5.40); Red Cell Distribution Width 13.1 % (11.5-17.5); White Blood Count 10.2 K/mm3 (4.8-10.8)
--- NOTE | 2023-07-12 22:16 | EXP.ANES.CKL ---
[facility] Disclaimer: The information contained in this section may have been updated after the patient was seen, as this information can be updated by other users. Medical History Abnormal EKG Dyspnea Heart disease Heart murmur Palpitations Retained placenta Tobacco dependence syndrome Surgical History H/O exploratory laparotomy H/O removal of cyst History of D&C Family History Other Heart attack Substance abuse Social History Smoking Status: Never smoker alcohol intake: current substance use type: denies use current occupational status: employed Travel in the last 8 weeks: None [facility] Anesthesia Checklist Patient Identification Patient Identification: Arm Band Structural Data Admitted From: Inpatient Planned Operative Procedure/s: Labor Epidural Consent for Planned Operative Procedure(s) Verified: Yes Verified Documents: Surgical Consent and History and Physical NPO Status Verified Time NPO: 18:00 Additional verifications Anesthesia Reactions: Yes (N/V) Hx Blood Transfusions: No Blood Transfusion Reaction: No Airway Assessment Mallampati Score:: Class II C-Spine Mobility Assessed: Yes TMJ Mobility Assessed: Yes Dentition: Good Dentition Neurological Assessment Level of Consciousness: Awake and Alert Anesthesia Plan Anesthesia Risk discussed: Yes Anesthesia Plan: Verified ASA Class: II Anesthesia Type: Epidural
--- NOTE | 2023-07-13 01:02 | EXP.HP ---
History of Present Illness *Admission Date: 07/12/23 *Reason for visit:: Active labor, postdates, AMA *History of present illness: 40 weeks and 5 days. She is a 8 para 5 aborta 2 who was due to be induced. She arrived the evening prior to her induction in active labor. She was found to be 3 cm dilated and having irregular contractions. As of results that she was admitted in early labor. She has had 5 previous vaginal deliveries. [facility] Disclaimer: The information contained in this section may have been updated after the patient was seen, as this information can be updated by other users. Medical History Abnormal EKG Dyspnea Heart disease Heart murmur Palpitations Retained placenta Tobacco dependence syndrome Surgical History H/O exploratory laparotomy H/O removal of cyst History of D&C Family History Substance abuse Heart attack Social History Smoking Status: Never smoker alcohol intake: current substance use type: denies use current occupational status: employed Travel in the last 8 weeks: None Review of Systems Review of Systems Review of systems:: pertinent systems reviewed and negative unless documented below Meds Home Medications and Allergies Home Medications Medication Instructions Recorded Confirmed Type vits 75-iron 28 mg-folic pkg PO 01/10/23 07/11/23 History acid 800 mcg-omega-3 oral combo pack (One A Day Women's DHA) New Prescriptions to Start Prescriptions: Allergies Allergy/AdvReac Type Severity Reaction Status Date / Time promethazine [From PHENERGAN] Allergy Mild PASSES ME Verified 07/11/23 09:53 OUT FOR DAYS meperidine [From DEMEROL] Allergy Unknown Verified 07/11/23 09:53 latex Allergy Verified 07/11/23 09:53 acetaminophen [From Percocet] AdvReac Mild Headache Verified 07/11/23 09:53 oxycodone [From Percocet] AdvReac Mild Headache Verified 07/11/23 09:53 Exam Data for Last 24 hours Vital signs and Labs for Last 24 Hours: Temp Pulse Resp BP Pulse Ox O2 Del Method 98.3 F 84 17 124/90 99 Room Air 07/12/23 19:17 07/12/23 19:17 07/12/23 19:17 07/12/23 19:17 07/12/23 19:17 07/12/23 19:17 Laboratory Results - last 24 hr 07/12/23 19:33: Urine Color Yellow, Urine Appearance Clear, Urine pH 6.0, Ur Specific [place] 1.010, Urine Protein Negative, Urine Glucose (UA) Negative, Urine Ketones Negative, Urine Blood 2+, Urine Nitrate Negative, Urine Bilirubin Negative, Urine Urobilinogen 0.2, Ur Leukocyte Esterase 2+ A, Urine RBC Occasional, Urine WBC 10-20, Ur Squamous Epith Cells 3-5, Urine Bacteria 1+, Urine Opiates Screen Negative, Urine Methadone Screen Negative, Ur Barbituates Screen Negative, Ur Phencyclidine Scrn Negative, Ur Amphetamines Screen Negative, U Benzodiazepines Scrn Negative, Urine Cocaine Screen Negative, U Marijuana (THC) Screen Negative 07/12/23 20:50: WBC 10.2, RBC 4.24, Hgb 13.0, Hct 38.0, MCV 89.6, MCH 30.8, MCHC 34.3, RDW 13.1, Plt Count 240, MPV 8.0, Neut % (Auto) 77.6, Lymph % (Auto) 18.1, [place] % (Auto) 3.3, Eos % (Auto) 0.7, Baso % (Auto) 0.3, Neut # (Auto) 7.9 H, Lymph # (Auto) 1.8, [place] # (Auto) 0.3, Eos # (Auto) 0.1, Baso # (Auto) 0.0, Blood Type O Positive, Antibody Screen Negative, Crossmatch (AHG) See Detail I & O for Last 24 hours: Intake & Output 07/10/23 07/11/23 07/12/23 07/13/23 11:59 11:59 11:59 11:59 Weight 178 lb Constitutional Constitutional: no acute distress *Routine HEENT Exam Head: Present normocephalic Eye: Present EOMI and PERRL ENT: Present mucous membranes moist *Routine Neck Exam Neck: Present supple; Absent lymphadenopathy *Routine Respiratory Exam Respiratory: Present CTA bilaterally *Routine Cardiovascular Exam Cardiovasc
--- NOTE | 2023-07-13 01:05 | EXP.LABOR.NO ---
Labor Note Subjective: Date: 07/13/23 Time: 01:05 regular contraction Objective: NST:: Reactive Contractions:: every 2-3 minutes Cervical Dilation:: 7-8 Effacement:: 90% Station: -3 Membranes: intact Fetus: Monitoring?: Yes monitoring type:: External Assessment: Labor progressing?: Yes Cephalopelvic disproportion?: No Plan: Anesthesia for epidural?: Yes Continue to labor down?: Yes Plan for ?: No Continue to monitor?: Yes Start pushing?: No Comment:: She is 7-8 cm Station -3 with a bulging bag of water. I elected not to rupture the membranes at this point in time because the baby does not seem to be engaged in the pelvis. We will allow her to continue to labor for now.
--- NOTE | 2023-07-13 05:48 | EXP.LABOR.NO ---
Labor Note Subjective: Date: 07/13/23 Time: 05:48 regular contraction Objective: NST:: Reactive Contractions:: every 2-3 minutes Cervical Dilation:: 8 Effacement:: 90% Station: -1 Membranes: artificially ruptured Comment:: As I examined her, her membranes spontaneously ruptured. There was thin meconium. The head is very well applied to the cervix. We will expect a vaginal delivery. Fetus: Monitoring?: Yes monitoring type:: External Assessment: Labor progressing?: Yes Cephalopelvic disproportion?: No Plan: Anesthesia for epidural?: Yes Continue to labor down?: Yes Plan for ?: No Continue to monitor?: Yes Start pushing?: No
--- NOTE | 2023-07-13 06:46 | EXP.DN ---
Delivery Note Delivery Date:: 07/13/23 Delivery Time:: 06:31 Anesthesia Type: Epidural Was labor medically induced?: No Induction method: none Gestational age (weeks): 40 Infant delivered prior to 39 weeks?: No Justification for early elective delivery:: Active Labor Gender: Male at 1 minute: 8 at 5 minutes: 9 Delivery Procedure:: She is a 37-year-old 8 now para 6 aborta 2 who was 40+5 weeks gestational age. She arrived in active labor. She subsequently received an epidural and was augmented with oxytocin. She progressed to full dilation and delivered spontaneously a liveborn male child at 6:31 AM on the morning of July 13, 2023. There was thin meconium when her membranes ruptured. On deliver the head I used a DeLee suction to suction the mouth and then nose. The baby was vigorous. The anterior shoulder then delivered followed by the rest the infant's body atraumatically. We continue to suction the baby and there was just thin meconium. He was vigorous so we allowed the cord to continue to pulsate for approximately 1 minute. The cord was then doubly clamped and cut and the was placed on the mother's abdomen for further care. The nurses assigned Apgars of 8 at 1 minute and 9 at 5 minutes. She received IV oxytocin using gentle traction on the cord and countertraction the fundus I was able to easily the deliver the placenta intact 10 minutes after delivery. It had a normal three-vessel cord. There were no perineal or vaginal lacerations. Her estimated blood loss was approximately 100 cc. Placental Delivery Description: Spontaneous
[2023-07-13 20:21] VITALS: BP 142/72; PULSE 75; RESP 18; TEMP 36.9; O2SAT 99
[2023-07-14 06:45] LABS: Hematocrit 34.3 % (37.0-47.0); Hemoglobin 11.6 g/dL (12.2-16.2)
--- NOTE | 2023-07-14 08:21 | EXP.DC.SUM ---
General Admission date:: 07/12/23 Discharge date: 07/14/23 HPI HPI HPI: PPD # 1 s/p Feeling well. Denies pain. She is breast feeding. Appropriate lochia. Voiding without difficulty and passing flatus. Tolerating regular diet. Denies fever/chills, chest pain and shortness of breath. No headaches, dizziness/lightheadedness. Ambulating well ad josé luis. Hospital Course Hospital Course Hospital Course: Mrs Suha Mccabe is a 37 yo at 40 weeks and 5 days who presented to [facility] in active labor. She was found to be 3 cm dilated and having irregular contractions. As of results that she was admitted in early labor. She has had 5 previous vaginal deliveries. She had a normal spontaneous vaginal delivery on 07/13/23 at 0631. She delivered a live male baby, Rah, weighing 7 lb 4 oz. APGARs 8, 9. EBL 100 mL. She did well . Pain controlled. Breast feeding. Appropriate lochia. Voiding without difficulty and passing flatus. Tolerating regular diet. Denied fever/chills, chest pain and shortness of breath. No headaches, dizziness/lightheadedness. Ambulating well ad josé luis. She was discharged home on PPD #1. Normal hospital course. Exam Data for Last 24 hours Vital signs and Labs for Last 24 Hours: Temp Pulse Resp BP Pulse Ox O2 Del Method 98.4 F 75 18 142/72 H 99 Room Air 07/13/23 20:21 07/13/23 20:21 07/13/23 20:21 07/13/23 20:21 07/13/23 20:21 07/13/23 20:21 Laboratory Results - last 24 hr 07/14/23 05:33: Hgb 11.6 L, Hct 34.3 L I & O for Last 24 hours: Intake & Output 07/11/23 07/12/23 07/13/23 07/14/23 23:59 23:59 23:59 23:59 Weight 178 lb Constitutional Constitutional: no acute distress *Routine HEENT Exam Head: Present normocephalic and atraumatic Eye: Absent conjunctivae pink ENT: Present mucous membranes moist *Routine Neck Exam Neck: Present full ROM *Routine Respiratory Exam Respiratory: Present CTA bilaterally and normal respiratory effort *Routine Cardiovascular Exam Cardiovascular: Present RRR *Routine Abdominal Exam Abdominal: Present soft; Absent tenderness or distended *Routine Rectal Exam Patient deferred: visual exam *Routine Exam Patient deferred: external exam *Routine Extremities Exam Extremities: Present full ROM; Absent edema or calf tenderness *Routine Neurological Exam Neurological: Present alert, oriented X3 and moving all extremities Routine Psychiatric Exam Psychiatric: Present normal affect and cooperative Results Data Completed and Pending Labs on day of discharge: Labs from last 24 hours 07/14/23 05:33 Hgb 11.6 L Hct 34.3 L DS: Diagnosis Discharge Diagnosis (1) Status post normal vaginal delivery: Status: Acute (2) Active labor: Status: Acute (3) Post-dates : Status: Acute Code(s): O48.0 - Post-term Qualifiers: Post-term type: 40-42 weeks gestation Qualified Code(s): O48.0 - Post-term (4) Tobacco smoking complicating : Status: Acute Code(s): O99.330 - Smoking (tobacco) complicating , unspecified trimester Qualifiers: Trimester: third trimester Qualified Code(s): O99.333 - Smoking (tobacco) complicating , third trimester (5) AMA (advanced maternal age) multigravida 35+: Status: Acute Code(s): O09.529 - Supervision of elderly multigravida, unspecified trimester Qualifiers: Trimester: third trimester Qualified Code(s): O09.523 - Supervision of elderly multigravida, third trimester Meds Home Medications and Allergies Home Medications Medication Instructions Recorded Confirmed Type vits 75-iron 28 mg-folic 1 pkg PO DAILY Supplement 01/10/23 07/13/23 History acid 800 mcg-omega-3 oral combo pack (One A Day Women's DHA) New Prescriptions to Start Prescriptions: Allergies Allergy/AdvReac Type Severity Reaction Status
== END 2023-07-14 14:55 | disposition home or self-care (01) | DRG 807 ==
LOC: OBOUT 20:29 → OB 20:29
PROVIDERS: Admitting Provider Nurse Practitioner Obstetrics & Gynecology; Visit Provider Nurse Practitioner Obstetrics & Gynecology
DX: O48.0 Post-term pregnancy (principal); Z37.0 Single live birth; Z3A.40 40 weeks gestation of pregnancy; O99.334 Smoking (tobacco) complicating childbirth; O77.0 Labor and delivery complicated by meconium in amniotic fluid
CPT/HCPCS: 59409; 36415; 59025; 80305; 81001; 85014; 85018; 85025; 86850; 87086; 94761; G0283